=== PATIENT | female | born 1945 | race Caucasian/White ===

== ENCOUNTER 2016-11-09 21:03 | Inpatient (IN) | payer OTHER ==
[~2016-11-09] VITALS: Ht 165.1 cm; Wt 99.0 kg
[~2016-11-09 21:03] MED LIST: ACCOLATE20 MG PO; ADVAIR 250/501 DISK IH; ALBUTEROL SULF8.5 GM IH; AMARYL2 MG PO; AMLODIPINE-BEN1 EAC3 PO; BACLOFEN20 MG PO; BENAZEPRIL HCL10 MG PO; CELEBREX200 MG PO; CIPRO500 MG PO; CLEOCIN300 MG PO; CRANBERRY TABL1 EACH PO; CRESTOR5 MG PO; DICLOFENAC SOD100 MG PO; DURAGESIC25 MCG TD; DURAGESIC50 MCG TD; FENTANYL1 EAC5 TD; GABAPENTIN300 MG PO; GLIMEPIRIDE2 MG PO; HUMALOG100 UNIT/2 SC; HYDROCODON-ACE1 EACH PO; ICY HOT CREAM35.4 G1 TP; JANUVIA25 M1 PO; LEVAQUIN750 MG PO; LEVEMIR FL100 UNIT/1 SC; LEVEMIR FL100 UNITS/ SC; LORTAB 10/500 T1 TAB PO; LOTREL 5/201 CAPSULE PO; METFORMIN HCL1000 M1 PO; METFORMIN HCL1000 MG PO; METFORMIN HCL500 MG PO; NEXIUM40 MG PO; NOVOLOG PE100 UNITS/ SC; OMEPRAZOLE20 MG PO; PREDNISONE10 MG PO; PREDNISONE50 MG PO; PROAIR HFA8.5 GM IH; PROVENTIL,2.5 MG/0.5 IH; PROVENTIL,2.5 MG/3 M IH; PULMICORT1 MG/2 ML IH; PYRIDIUM200 MG PO; RANITIDINE HCL150 MG PO; SIMVASTATIN20 M1 PO; SIMVASTATIN40 MG PO; SINGULAIR10 MG PO; SPIRIVA1 INHALATI IH; STOOL SOFTENER100 M1 PO; TAMIFLU75 MG PO; TRESIBA FL200 UNIT/1 SC; TYLENOL REGULA325 MG PO; VENTOLIN HFA18 GM IH; VIBRAMYCIN100 MG PO; VITAMIN B12-FO1 EACH PO; VITAMIN D32000 UNI1 PO; XARELTO15 MG PO; XARELTO20 MG PO; ZOCOR40 MG PO
[2016-11-09 22:08] LABS: HEMATOCRIT 36.8 % (36.0-46.0); MCH 25.2 PG (29.0-34.0); MCHC 31.3 G/DL (30.0-36.0); MCV 80.7 FL (83-99); MEAN PLAT.VOLUME 11.3 uM^3 (9.5-12.4); PLATELET COUNT 357 K/uL (156-360); RBC DIS.WIDTH-CV 14.8 % (11.8-14.6); RBC DIS.WIDTH-SD 43.2 % (39-53); RED BLOOD COUNT 4.56 M/uL (3.80-5.20); WHITE BLOOD COUNT 12.9 K/uL (4.1-10.2)
[2016-11-09 22:21] LABS: CHLORIDE 106 mEq/L (99-109); POTASSIUM 3.9 mEq/L (3.7-5.4); SODIUM 140 mEq/L (136-147)
[2016-11-09 22:23] LABS: GLUCOSE 212 mg/dL (70-99)
[2016-11-09 22:25] LABS: ANION GAP 11 MEQ/L (2-14); TROP-I INTERPRETATION NEGATIVE; TROPONIN-I < 0.01 ng/mL (0.0-0.30)
[2016-11-09 22:27] LABS: GFR ESTIMATE (CALCULATED) 31 mL/min/
[2016-11-09 22:28] LABS: UREA NITROGEN (BUN) 16 mg/dL (9-23)
[2016-11-10 00:01] LABS: D-DIMER ELISA 0.35 mg/L FEU (< 0.57)
[2016-11-10] MEDS ORDERED: XOLAIR150 MG SC (01:12)
[2016-11-10] MEDS ORDERED: ADVAIR 500/501 DISK IH (01:13)
[2016-11-10] MEDS ORDERED: BENAZEPRIL HCL5 MG PO (01:13)
[2016-11-10] MEDS ORDERED: CYANOCOBALAM1000 MCG PO (01:15)
[2016-11-10] MEDS ORDERED: GLIMEPIRIDE2 MG PO (01:15)
[2016-11-10 04:26] VITALS: BP 142/80
[2016-11-10 05:24] LABS: POINT-OF-CARE METER ID UU13113725
[2016-11-10 06:30] LABS: EOSINOPHIL COUNT 0.4 K/uL (0-0.3); HEMATOCRIT 31.9 % (36.0-46.0); IMMATURE GRANULOCYTE (%) 0.3 % (0.0-0.7); INSTRUMENT ABS NEUTROPHIL CT 7.6 K/uL; LYMPHOCYTE COUNT 2.9 K/uL (1.0-2.8); MCH 24.8 PG (29.0-34.0); MCHC 30.4 G/DL (30.0-36.0); MCV 81.6 FL (83-99); MEAN PLAT.VOLUME 11.4 uM^3 (9.5-12.4); MONOCYTE (%) 7.6 % (3-12); MONOCYTE COUNT 0.9 K/uL (0-0.8); NEUTROPHIL (%) 64.4 % (45-76); NEUTROPHIL COUNT 7.6 K/uL (1.8-6.4); PLATELET COUNT 298 K/uL (156-360); RBC DIS.WIDTH-CV 14.8 % (11.8-14.6); RBC DIS.WIDTH-SD 43.4 % (39-53); RED BLOOD COUNT 3.91 M/uL (3.80-5.20); WHITE BLOOD COUNT 11.8 K/uL (4.1-10.2)
[2016-11-10 07:27] VITALS: BP 148/73
[2016-11-10 07:31] LABS: ANION GAP 8 MEQ/L (2-14); CHLORIDE 106 MEQ/L (99-109); GFR ESTIMATE (CALCULATED) 34 mL/min/; GLUCOSE 130 mg/dL (70-99); POTASSIUM 4.4 MEQ/L (3.7-5.4); SAMPLE HEMOLYSIS CHECK 0; SAMPLE ICTERIC CHECK 0; SAMPLE LIPEMIA CHECK 0; SODIUM 142 MEQ/L (136-147); UREA NITROGEN (BUN) 17 mg/dL (9-23)
[2016-11-10 10:59] LABS: FERRITIN 10 NG/ML (10-291)
[2016-11-10 11:00] VITALS: BP 139/68
[2016-11-10 11:31] LABS: POINT-OF-CARE METER ID UU13113725
[2016-11-10 14:40] VITALS: BP 127/59
[2016-11-10 19:01] VITALS: BP 127/63
[2016-11-10 22:43] VITALS: BP 118/55
[2016-11-11 04:01] VITALS: BP 110/66
[2016-11-11 06:50] VITALS: BP 108/65
[2016-11-11 07:17] LABS: INTERNAL CONTROL VALID? YES
[2016-11-11 10:58] VITALS: BP 118/57
[2016-11-11 15:01] VITALS: BP 108/53
[2016-11-11 23:31] VITALS: BP 124/62
[2016-11-12 06:09] LABS: POINT-OF-CARE METER ID UU13113725
[2016-11-12 06:18] LABS: BASOPHIL COUNT 0.1 K/uL (0-0.1); EOSINOPHIL (%) 3.3 % (0-5); EOSINOPHIL COUNT 0.4 K/uL (0-0.3); HEMATOCRIT 33.7 % (36.0-46.0); IMMATURE GRANULOCYTE (%) 0.4 % (0.0-0.7); IMMATURE GRANULOCYTE COUNT 0.1 K/uL; INSTRUMENT ABS NEUTROPHIL CT 8.2 K/uL; MCH 24.9 PG (29.0-34.0); MCHC 30.6 G/DL (30.0-36.0); MCV 81.6 FL (83-99); MONOCYTE (%) 6.6 % (3-12); MONOCYTE COUNT 0.8 K/uL (0-0.8); NEUTROPHIL (%) 65.2 % (45-76); NEUTROPHIL COUNT 8.2 K/uL (1.8-6.4); PLATELET COUNT 293 K/uL (156-360); RBC DIS.WIDTH-CV 14.8 % (11.8-14.6); RBC DIS.WIDTH-SD 44.1 % (39-53); RED BLOOD COUNT 4.13 M/uL (3.80-5.20); WHITE BLOOD COUNT 12.6 K/uL (4.1-10.2)
[2016-11-12 07:19] LABS: ALKALINE PHOSPHATASE 61 IU/L (3-129); ANION GAP 9 MEQ/L (2-14); CHLORIDE 104 MEQ/L (99-109); GFR ESTIMATE (CALCULATED) 29 mL/min/; GLUCOSE 139 mg/dL (70-99); POTASSIUM 4.7 MEQ/L (3.7-5.4); SAMPLE HEMOLYSIS CHECK 0; SAMPLE ICTERIC CHECK 0; SAMPLE LIPEMIA CHECK 0; SODIUM 140 MEQ/L (136-147); TOTAL BILIRUBIN 0.3 MG/DL (0.0-1.0); UREA NITROGEN (BUN) 26 mg/dL (9-23)
[2016-11-12 08:20] VITALS: BP 132/71
[2016-11-12 11:11] VITALS: BP 136/80
[2016-11-12 15:00] VITALS: BP 136/82
[2016-11-12 15:32] LABS: ANION GAP 7 MEQ/L (2-14); CHLORIDE 105 MEQ/L (99-109); POTASSIUM 4.5 MEQ/L (3.7-5.4); SAMPLE HEMOLYSIS CHECK 0; SAMPLE ICTERIC CHECK 0; SAMPLE LIPEMIA CHECK 0; SODIUM 138 MEQ/L (136-147)
[2016-11-12 15:38] LABS: GFR ESTIMATE (CALCULATED) 29 mL/min/; GLUCOSE 180 mg/dL (70-99); UREA NITROGEN (BUN) 26 mg/dL (9-23)
[2016-11-12 16:51] LABS: POINT-OF-CARE METER ID UU13113725
[2016-11-12 19:50] VITALS: BP 112/53
[2016-11-12 20:26] VITALS: BP 168/70
[2016-11-12 21:19] LABS: POINT-OF-CARE METER ID UU13113725
[2016-11-12 23:01] VITALS: BP 116/56
[2016-11-13 06:21] LABS: POINT-OF-CARE METER ID UU13113725
[2016-11-13 06:49] VITALS: BP 119/54
[2016-11-13] MEDS ORDERED: LEVAQUIN750 MG PO (07:36)
[2016-11-13 08:29] LABS: ANION GAP 8 MEQ/L (2-14); CHLORIDE 104 MEQ/L (99-109); POTASSIUM 4.7 MEQ/L (3.7-5.4); SAMPLE HEMOLYSIS CHECK 0; SAMPLE ICTERIC CHECK 0; SAMPLE LIPEMIA CHECK 0; SODIUM 139 MEQ/L (136-147)
[2016-11-13 08:35] LABS: GFR ESTIMATE (CALCULATED) 31 mL/min/; GLUCOSE 163 mg/dL (70-99); UREA NITROGEN (BUN) 29 mg/dL (9-23)
== END 2016-11-13 09:35 | disposition home or self-care (01) | DRG 190 ==
LOC: EME 21:03 → 5EAST 11-10 01:50 → EDOF 11-10 01:50 → 5EAST 11-10 04:06
PROVIDERS: Internal Medicine; Nurse Practitioner Adult Health; Pediatrics
DX: J44.0 Chronic obstructive pulmonary disease with (acute) lower respiratory infection (principal); J15.9 Unspecified bacterial pneumonia; R53.1 Weakness; I10 Essential (primary) hypertension; E11.9 Type 2 diabetes mellitus without complications; K21.9 Gastro-esophageal reflux disease without esophagitis; D53.9 Nutritional anemia, unspecified; E78.5 Hyperlipidemia, unspecified; G89.29 Other chronic pain; E78.00 Pure hypercholesterolemia, unspecified; J45.20 Mild intermittent asthma, uncomplicated; I12.9 Hypertensive chronic kidney disease with stage 1 through stage 4 chronic kidney disease, or unspecified chronic kidney disease; N18.3 Chronic kidney disease, stage 3 (moderate); Z79.4 Long term (current) use of insulin; Z87.891 Personal history of nicotine dependence; Z86.718 Personal history of other venous thrombosis and embolism; I25.2 Old myocardial infarction
CPT/HCPCS: 71010; 71020; 80048; 80048 91; 80053; 82728; 82948; 83605; 84484; 85025; 85027; 85379; 87040; 87070; 87205; 87449; 93005; 94640; 94640 76; 99202; 99281; 99285; J1815; J1956; J7030; J7040

== ENCOUNTER 2017-01-16 23:30 | Emergency (ER) | payer OTHER ==
[~2017-01-16] VITALS: Ht 152.4 cm; Wt 97.5 kg
[~2017-01-16 23:30] MED LIST changes: +ADVAIR 500/501 DISK IH; +BENAZEPRIL HCL5 MG PO; +CYANOCOBALAM1000 MCG PO; +XOLAIR150 MG SC
[2017-01-17 01:28] VITALS: BP 152/76
== END 2017-01-17 01:30 | disposition home or self-care (01) ==
LOC: EME → EDBD 23:30 → EME 01-17 01:30
DX: S80.02XA Contusion of left knee, initial encounter (principal); S09.90XA Unspecified injury of head, initial encounter; M25.531 Pain in right wrist; M25.532 Pain in left wrist; W01.198A Fall on same level from slipping, tripping and stumbling with subsequent striking against other object, initial encounter; Y92.009 Unspecified place in unspecified non-institutional (private) residence as the place of occurrence of the external cause; Z79.01 Long term (current) use of anticoagulants; E11.22 Type 2 diabetes mellitus with diabetic chronic kidney disease; I12.9 Hypertensive chronic kidney disease with stage 1 through stage 4 chronic kidney disease, or unspecified chronic kidney disease; N18.3 Chronic kidney disease, stage 3 (moderate); Z87.891 Personal history of nicotine dependence; Z79.4 Long term (current) use of insulin; Z96.653 Presence of artificial knee joint, bilateral; Z96.649 Presence of unspecified artificial hip joint; E78.5 Hyperlipidemia, unspecified; J45.909 Unspecified asthma, uncomplicated; Z90.710 Acquired absence of both cervix and uterus
CPT/HCPCS: 70450; 71101; 73110; 73564; 93005; 99281; 99284